=== PATIENT | female | born 1990 | race Caucasian/White ===

== ENCOUNTER 2017-11-22 13:28 | Emergency (ER) | payer OTHER ==
[~2017-11-22] VITALS: Ht 157.5 cm; Wt 82.0 kg
[~2017-11-22 13:28] MED LIST: ATARAX,VISTARIL25 MG; BACTRIM,SEPT1 TABLET PO; COLCHICINE0.6 M1 PO; ENDOCET 5-3251 EACH PO; LUVOX50 MG; MOTRIN800 MG PO; NOHOMEMEDS; PERCOCET 5/31 TABLET PO; PROCARDIA20 MG PO; REGLAN10 MG PO; TYLENOL REGULA325 MG PO; TYLENOL WITH C1 EACH PO; ZOFRAN ODT4 MG PO; ZOLOFT50 M1 PO; Zoloft PO
[2017-11-22 14:47] LABS: HEMATOCRIT 40.2 % (36.0-46.0); MCH 29.9 PG (29.0-34.0); MCHC 34.8 G/DL (30.0-36.0); MCV 85.7 FL (83-99); PLATELET COUNT 323 K/uL (156-360); RBC DIS.WIDTH-CV 13.9 % (11.8-14.6); RBC DIS.WIDTH-SD 43.1 % (39-53); RED BLOOD COUNT 4.69 M/uL (3.80-5.20); WHITE BLOOD COUNT 6.6 K/uL (4.1-10.2)
[2017-11-22 14:57] LABS: CHLORIDE 109 mEq/L (99-109); POTASSIUM 3.5 mEq/L (3.7-5.4); SODIUM 141 mEq/L (136-147)
[2017-11-22 14:59] LABS: GLUCOSE 101 mg/dL (70-99)
[2017-11-22 15:02] LABS: SERUM ETHYL ALCOHOL < 10 mg/dL
[2017-11-22 15:03] LABS: CREATININE 0.6 mg/dL (0.6-1.3); GFR ESTIMATE (CALCULATED) > 59 mL/min/; UREA NITROGEN (BUN) 6 mg/dL (9-23)
[2017-11-22 16:29] LABS: AMPHETAMINE NEGATIVE (500 ng/mL); BARBITURATES NEGATIVE (200 ng/mL); BENZODIAZEPINES NEGATIVE (150 ng/mL); BUPRENORPHINE NEGATIVE (10 ng/mL); COCAINE NEGATIVE (150 ng/mL); METHADONE NEGATIVE (200 ng/mL); METHAMPHETAMINE NEGATIVE (500 ng/mL); OPIATES (MORPHINE) NEGATIVE (100 ng/mL); OXYCODONE NEGATIVE (100 ng/mL); PHENCYCLIDINE NEGATIVE (25 ng/mL); PROPOXYPHENE NEGATIVE (300 ng/mL); THC CANNABINOIDS NEGATIVE (50 ng/mL); TRICYCLIC ANTIDEPRESSANTS NEGATIVE (300 ng/mL)
[2017-11-22 18:02] LABS: ALBUMIN 4.1 g/dL (3.2-4.8)
[2017-11-22 18:04] VITALS: BP 121/98
[2017-11-22 18:05] LABS: TOTAL PROTEIN 7.3 g/dL (6.4-8.3)
[2017-11-22 18:07] LABS: TOTAL BILIRUBIN 0.2 mg/dL (0.0-1.0)
[2017-11-22 18:08] LABS: ALKALINE PHOSPHATASE 79 IU/L (3-129)
[2017-11-22 18:10] LABS: AST (GOT) 25 IU/L (2-34); DIRECT BILIRUBIN 0.1 mg/dL (0.0-0.3)
[2017-11-22 18:11] LABS: ALT (GPT) 18 IU/L (3-49)
== END 2017-11-22 18:05 | disposition home or self-care (01) ==
LOC: EME 13:28
DX: R44.1 Visual hallucinations (principal); T50.7X5A Adverse effect of analeptics and opioid receptor antagonists, initial encounter; F11.11 Opioid abuse, in remission; F41.9 Anxiety disorder, unspecified; F17.200 Nicotine dependence, unspecified, uncomplicated; F32.9 Major depressive disorder, single episode, unspecified; J45.909 Unspecified asthma, uncomplicated; Z88.6 Allergy status to analgesic agent
CPT/HCPCS: 80048; 80076; 85027; 90832; 99281; 99285; G0480

== ENCOUNTER 2018-02-16 13:08 | Emergency (ER) | payer OTHER ==
[~2018-02-16] VITALS: Ht 157.5 cm; Wt 82.4 kg
[2018-02-16 14:23] LABS: HEMATOCRIT 38.3 % (36.0-46.0); HEMOGLOBIN 13.2 G/DL (11.9-15.5); MCH 30.6 PG (29.0-34.0); MCHC 34.5 G/DL (30.0-36.0); MCV 88.9 FL (83-99); PLATELET COUNT 328 K/uL (156-360); RBC DIS.WIDTH-SD 45.4 % (39-53); RED BLOOD COUNT 4.31 M/uL (3.80-5.20); WHITE BLOOD COUNT 11.3 K/uL (4.1-10.2)
[2018-02-16 14:37] LABS: CHLORIDE 106 mEq/L (99-109); POTASSIUM 3.8 mEq/L (3.7-5.4); SODIUM 141 mEq/L (136-147)
[2018-02-16 14:39] LABS: GLUCOSE 106 mg/dL (70-99)
[2018-02-16] MEDS ORDERED: AUGMENTIN875 MG PO (14:40)
[2018-02-16 14:43] LABS: CREATININE 0.7 mg/dL (0.6-1.3); GFR ESTIMATE (CALCULATED) > 59 mL/min/
[2018-02-16 14:44] LABS: UREA NITROGEN (BUN) 12 mg/dL (9-23)
[2018-02-16 15:16] VITALS: BP 139/88
== END 2018-02-16 15:16 | disposition home or self-care (01) ==
LOC: EME 13:08
PROVIDERS: Nurse Practitioner Family
DX: J32.9 Chronic sinusitis, unspecified (principal); J45.909 Unspecified asthma, uncomplicated; F32.9 Major depressive disorder, single episode, unspecified; F17.200 Nicotine dependence, unspecified, uncomplicated; Z88.6 Allergy status to analgesic agent; Z88.5 Allergy status to narcotic agent
CPT/HCPCS: 80048; 85027; 99281; 99284

== ENCOUNTER 2018-04-30 18:53 | Emergency (ER) | payer OTHER ==
[~2018-04-30] VITALS: Ht 157.5 cm; Wt 79.9 kg
[~2018-04-30 18:53] MED LIST changes: +AUGMENTIN875 MG PO
[2018-04-30] MEDS ORDERED: FIORICET 50-301 EAC1 PO (20:42)
[2018-04-30] MEDS ORDERED: MOTRIN800 MG PO (20:42)
[2018-04-30 20:52] VITALS: BP 118/82
== END 2018-04-30 20:53 | disposition home or self-care (01) ==
LOC: EME 18:53
DX: G43.909 Migraine, unspecified, not intractable, without status migrainosus (principal); F32.9 Major depressive disorder, single episode, unspecified; J45.909 Unspecified asthma, uncomplicated; F17.200 Nicotine dependence, unspecified, uncomplicated; Z88.5 Allergy status to narcotic agent; Z88.6 Allergy status to analgesic agent
CPT/HCPCS: J0780; J1200; J1885; J7120